=== PATIENT | female | born 1980 | race African-American/Black ===

== ENCOUNTER 2016-08-25 16:45 | Emergency (ER) | payer MEDICAID, OTHER ==
[~2016-08-25] VITALS: Ht 165.1 cm; Wt 78.0 kg
[2016-08-25 17:30] VITALS: BP 116/82
[2016-08-25] MEDS ORDERED: TETANUS-DIPTH-ACEL PERTUSSIS 0.5ML SYRG IM ONE (17:45)
== END 2016-08-25 17:57 | disposition home or self-care (01) ==
LOC: ER 16:59
DX: S41.132A Puncture wound without foreign body of left upper arm, initial encounter (principal); Z91.040 Latex allergy status; W54.0XXA Bitten by dog, initial encounter; Y93.89 Activity, other specified; Y99.8 Other external cause status; Y92.89 Other specified places as the place of occurrence of the external cause
CPT/HCPCS: 90471; 90715

== ENCOUNTER 2020-02-08 11:29 | Emergency (ER) | payer MEDICAID ==
[~2020-02-08] VITALS: Ht 154.9 cm; Wt 86.2 kg
[2020-02-08 11:34] VITALS: BP 136/91
[2020-02-08] MEDS ORDERED: LIDOCAINE 1% HCL (LOCAL ANESTH.) INJ 20ML MDV IJ ONE (12:15)
== END 2020-02-08 12:37 | disposition home or self-care (01) ==
LOC: ER 11:29
DX: S91.311A Laceration without foreign body, right foot, initial encounter (principal); Z88.6 Allergy status to analgesic agent; Z88.8 Allergy status to other drugs, medicaments and biological substances; W50.0XXA Accidental hit or strike by another person, initial encounter; Y93.89 Activity, other specified; Y92.89 Other specified places as the place of occurrence of the external cause; Y99.8 Other external cause status
CPT/HCPCS: 12001; 99283; J2001

== ENCOUNTER 2021-04-21 14:47 | Emergency (ER) | payer MEDICAID ==
[~2021-04-21] VITALS: Ht 154.9 cm; Wt 93.4 kg
[2021-04-21] MEDS ORDERED: HYDROcodone-ACET 10/325MG TAB PO ONE (15:00)
[2021-04-21] MEDS ORDERED: IOHEXOL 300 MG/ML 100ML BOTTLE IJ ONE (17:33)
[2021-04-21 18:12] VITALS: BP 116/76
== END 2021-04-21 18:55 | disposition short-term general hospital (02) ==
LOC: ER 14:47 → EDBD 14:47 → ER 18:55
DX: S12.090A Other displaced fracture of first cervical vertebra, initial encounter for closed fracture (principal); S09.8XXA Other specified injuries of head, initial encounter; Z88.6 Allergy status to analgesic agent; Z91.040 Latex allergy status; Z88.8 Allergy status to other drugs, medicaments and biological substances; Z90.710 Acquired absence of both cervix and uterus; V49.49XA Driver injured in collision with other motor vehicles in traffic accident, initial encounter; Y93.89 Activity, other specified; Y92.488 Other paved roadways as the place of occurrence of the external cause; Y99.8 Other external cause status
CPT/HCPCS: 70450; 71250; 72125; 74177; 93005

== ENCOUNTER 2022-06-07 20:20 | Emergency (ER) | payer MEDICAID ==
[~2022-06-07] VITALS: Ht 154.9 cm; Wt 89.0 kg
[2022-06-07] MEDS ORDERED: TETANUS-DIPTH-ACEL PERTUSSIS 0.5ML SYR Tdap IM ONE (22:15)
[2022-06-07 22:40] VITALS: BP 135/77
[2022-06-07] MEDS ORDERED: LIDOCAINE 1% HCL (LOCAL ANESTH.) INJ 20ML MDV ID ONE (23:00)
[2022-06-07] MEDS ORDERED: AMOX-277 PO (23:06)
[2022-06-07] MEDS ORDERED: IBUP800T27 PO (23:06)
== END 2022-06-07 23:36 | disposition home or self-care (01) ==
LOC: ER 20:23
DX: S51.812A Laceration without foreign body of left forearm, initial encounter (principal); S51.852A Open bite of left forearm, initial encounter; Z90.710 Acquired absence of both cervix and uterus; Z79.1 Long term (current) use of non-steroidal anti-inflammatories (NSAID); Z79.2 Long term (current) use of antibiotics; Z88.8 Allergy status to other drugs, medicaments and biological substances; Z91.040 Latex allergy status; Z91.048 Other nonmedicinal substance allergy status; W54.0XXA Bitten by dog, initial encounter; Y93.89 Activity, other specified; Y92.89 Other specified places as the place of occurrence of the external cause; Y99.8 Other external cause status
CPT/HCPCS: 12002; 73090; 99283; J2001